=== PATIENT | male | born 1960 | race Caucasian/White ===

== ENCOUNTER 2019-02-12 17:39 | Outpatient (REF) | payer OTHER, SELFPAY ==
[2019-02-12 21:28] LABS: ALT 63 U/L (16-63); AST 50 U/L (15-37); Albumin 3.8 g/dL (3.4-5.0); Alkaline Phosphatase 111 U/L (46-116); Bilirubin, Total 0.8 mg/dL (0.2-1.0); Total Protein 7.2 g/dL (6.4-8.2)
[2019-02-12 21:53] LABS: Bilirubin, Direct 0.21 mg/dL (0.00-0.20)
== END 2019-02-12 17:59 ==
LOC: NCHCN 17:39
PROVIDERS: PCP Nurse Practitioner Family; Visit Provider Nurse Practitioner Family
DX: I10 Essential (primary) hypertension (principal); E11.65 Type 2 diabetes mellitus with hyperglycemia; B35.4 Tinea corporis
CPT/HCPCS: 80076

== ENCOUNTER 2020-08-01 18:49 | Outpatient (REF) | payer SELFPAY ==
[2020-08-01 19:42] LABS: ALT 64 U/L (16-63); AST 39 U/L (15-37); Anion Gap 13.8 mmol/L (3-11); BUN 17 mg/dL (7-18); CO2 23.2 mmol/L (21.0-32.0); Calcium 9.2 mg/dL (8.5-10.1); Chloride 100 mmol/L (98-107); Glucose 230 mg/dL (74-106); HDL Cholesterol 62 mg/dL (40-60); LDL CHOLESTEROL 113 mg/dL (<100); Potassium 4.6 mmol/L (3.5-5.1); Sodium 137 mmol/L (136-145)
[2020-08-01 19:55] LABS: Creatine Kinase 174 U/L (39-308)
[2020-08-01 20:37] LABS: Vitamin D 25 Total 18.3 ng/ml (30-100)
[2020-08-02 18:13] LABS: PSA, Screening 4.3 ng/mL (0.0-4.5)
[2020-08-04 09:58] LABS: TSH (W/Ref FT4) 2.44 uIU/mL (0.36-3.74)
== END 2020-08-01 18:50 | disposition home or self-care (01) ==
LOC: NCHCN 18:49
PROVIDERS: PCP Nurse Practitioner Family; Visit Provider Nurse Practitioner Family
DX: I10 Essential (primary) hypertension (principal); E78.5 Hyperlipidemia, unspecified; F32.9 Major depressive disorder, single episode, unspecified; Z00.00 Encounter for general adult medical examination without abnormal findings; E11.65 Type 2 diabetes mellitus with hyperglycemia; Z12.5 Encounter for screening for malignant neoplasm of prostate
CPT/HCPCS: 80048; 82306; 82550; 83721; 84153; 83718; 84443; 84450; 84460

== ENCOUNTER 2020-08-12 09:58 | Outpatient (REF) | payer SELFPAY ==
[2020-08-12 16:08] LABS: BUN 21 mg/dL (7-18); CREATININE 1.4 mg/dL (0.70-1.30); Calcium 9.5 mg/dL (8.5-10.1); Chloride 100 mmol/L (98-107); Estimated GFR 51.35 (mL/min/1.73m2); Glucose 193 mg/dL (74-106); Potassium 4.1 mmol/L (3.5-5.1); Sodium 135 mmol/L (136-145)
[2020-08-16 14:44] LABS: Testosterone, Free 11.3 ng/dL (3.67-13.9); Testosterone, Total 313 ng/dL (240-950)
== END 2020-08-12 09:59 | disposition home or self-care (01) ==
LOC: NCHCN 09:58
PROVIDERS: PCP Nurse Practitioner Family; Visit Provider Family Medicine
DX: Z00.00 Encounter for general adult medical examination without abnormal findings (principal); R19.7 Diarrhea, unspecified; F52.21 Male erectile disorder; F10.10 Alcohol abuse, uncomplicated; I10 Essential (primary) hypertension; E11.65 Type 2 diabetes mellitus with hyperglycemia
CPT/HCPCS: 80048; 84402; 84403

== ENCOUNTER 2021-03-06 16:21 | Outpatient (REF) | payer OTHER, SELFPAY ==
[2021-03-06 20:23] LABS: ALT 61 U/L (16-63); AST 43 U/L (15-37); BUN 16 mg/dL (7-18); Calcium 9.4 mg/dL (8.5-10.1); Chloride 103 mmol/L (98-107); Glucose 129 mg/dL (74-106); HDL Cholesterol 83 mg/dL (40-60); LDL CHOLESTEROL 77 mg/dL (<100); Potassium 4.3 mmol/L (3.5-5.1); Sodium 140 mmol/L (136-145)
[2021-03-06 21:18] LABS: Creatine Kinase 263 U/L (39-308)
== END 2021-03-06 16:22 | disposition home or self-care (01) ==
LOC: NCHCN 16:21
PROVIDERS: PCP Nurse Practitioner Family; Visit Provider Nurse Practitioner Family
DX: I10 Essential (primary) hypertension (principal); E11.9 Type 2 diabetes mellitus without complications; E78.5 Hyperlipidemia, unspecified
CPT/HCPCS: 80048; 82550; 83721; 83718; 84450; 84460

== ENCOUNTER 2022-04-09 15:04 | Outpatient (REF) | payer BC, SELFPAY ==
[2022-04-09 16:21] LABS: Anion Gap 7.5 mmol/L (3-11); BUN 22 mg/dL (7-18); CO2 27.5 mmol/L (21.0-32.0); CREATININE 1.2 mg/dL (0.70-1.30); Calcium 8.9 mg/dL (8.5-10.1); Chloride 104 mmol/L (98-107); Estimated GFR 67.95 (mL/min/1.73m2); Glucose 123 mg/dL (74-106); Potassium 4.6 mmol/L (3.5-5.1); Sodium 139 mmol/L (136-145)
[2022-04-09 21:25] LABS: Hemoglobin A1C 5.9 % (<5.7)
== END 2022-04-09 15:05 | disposition home or self-care (01) ==
LOC: NCHCN 15:04
PROVIDERS: PCP Nurse Practitioner Family; Visit Provider Nurse Practitioner Family
DX: I10 Essential (primary) hypertension (principal); E11.9 Type 2 diabetes mellitus without complications
CPT/HCPCS: 80048; 83036

== ENCOUNTER 2023-10-03 16:25 | Outpatient (REF) | payer BC, SELFPAY ==
[2023-10-03 18:55] LABS: ALT 44 U/L (16-63); AST 42 U/L (15-37); Albumin 3.8 g/dL (3.4-5.0); Alkaline Phosphatase 77 U/L (46-116); Anion Gap 9.5 mmol/L (3-11); BUN 21 mg/dL (7-18); CO2 23.5 mmol/L (21.0-32.0); CREATININE 1.1 mg/dL (0.70-1.30); Chloride 103 mmol/L (98-107); Creatine Kinase 216 U/L (39-308); Glucose 239 mg/dL (74-106); Potassium 4.7 mmol/L (3.5-5.1); Sodium 136 mmol/L (136-145); Total Protein 7.2 g/dL (6.4-8.2)
[2023-10-03 19:10] LABS: HDL Cholesterol 91 mg/dL (40-60); LDL CHOLESTEROL 76 mg/dL (<100)
== END 2023-10-03 16:26 | disposition home or self-care (01) ==
LOC: NCHCN 16:25
PROVIDERS: PCP Nurse Practitioner Family; Visit Provider Nurse Practitioner Family
DX: E78.5 Hyperlipidemia, unspecified (principal); I10 Essential (primary) hypertension; E11.9 Type 2 diabetes mellitus without complications
CPT/HCPCS: 80053; 82550; 83721; 83036; 83718

== ENCOUNTER 2024-09-01 11:00 | Outpatient (REF) | payer BC, SELFPAY ==
[2024-09-01 15:44] LABS: Bacteria Rare HPF (Negative); C & S Indicated? No; Crystals Negative HPF (Negative); Epithelial Cells Rare HPF (Negative); Mucus Negative (Negative); Other Cells Rare Transitional (Negative); RBC 0-2 HPF (0-2); WBC 0-2 HPF (0-5)
[2024-09-01 17:18] LABS: Hemoglobin A1C 5.9 % (<5.7)
[2024-09-01 17:22] LABS: ALT 39 U/L (16-63); AST 31 U/L (15-37); Albumin 3.7 g/dL (3.4-5.0); Alkaline Phosphatase 92 U/L (46-116); Anion Gap 11.7 mmol/L (3-11); BUN 23 mg/dL (7-18); Bilirubin, Total 0.8 mg/dL (0.2-1.0); CO2 21.3 mmol/L (21.0-32.0); CREATININE 1.7 mg/dL (0.70-1.30); Calcium 9.7 mg/dL (8.5-10.1); Calculated LDL 61 mg/dL (<100); Chloride 107 mmol/L (98-107); Cholesterol 176 mg/dL (<200); Estimated GFR 43.91 (mL/min/1.73m2); Glucose 135 mg/dL (74-106); HDL Cholesterol 101 mg/dL (>or=40); Sodium 140 mmol/L (136-145); Total Protein 7.2 g/dL (6.4-8.2); Triglyceride 73 mg/dL (<150); Vitamin D 25 Total 8 ng/mL (30-100)
== END 2024-09-01 11:01 | disposition home or self-care (01) ==
LOC: NCHCN 11:00
PROVIDERS: PCP Physician Assistant Medical; Visit Provider Physician Assistant Medical
DX: E78.5 Hyperlipidemia, unspecified (principal); E11.9 Type 2 diabetes mellitus without complications; E55.9 Vitamin D deficiency, unspecified; R31.9 Hematuria, unspecified
CPT/HCPCS: 80053; 80061; 82306; 81015; 83036

== ENCOUNTER 2024-11-30 15:50 | Outpatient (REF) | payer BC, SELFPAY ==
[2024-11-30 17:54] LABS: Hemoglobin A1C 5.7 % (<5.7)
[2024-11-30 18:17] LABS: Anion Gap 10.5 mmol/L (3-11); BUN 24 mg/dL (7-18); CO2 23.5 mmol/L (21.0-32.0); Calcium 9.8 mg/dL (8.5-10.1); Chloride 103 mmol/L (98-107); Estimated GFR 47.23 (mL/min/1.73m2); Glucose 143 mg/dL (74-106); Potassium 5.4 mmol/L (3.5-5.1); Sodium 137 mmol/L (136-145); Vitamin D 25 Total 27 ng/mL (30-100)
[2024-12-01 18:18] LABS: PSA, Screening 20.9 ng/mL (<=4.5)
== END 2024-11-30 15:51 | disposition home or self-care (01) ==
LOC: NCHCN 15:50
PROVIDERS: PCP Physician Assistant Medical; Visit Provider Physician Assistant Medical
DX: E11.9 Type 2 diabetes mellitus without complications (principal); I10 Essential (primary) hypertension; E55.9 Vitamin D deficiency, unspecified; Z12.5 Encounter for screening for malignant neoplasm of prostate
CPT/HCPCS: 80048; 82306; 84153; 83036

== ENCOUNTER 2025-03-02 10:28 | Outpatient (REF) | payer BC, SELFPAY ==
[2025-03-02 17:44] LABS: ALT 33 U/L (16-63); AST 24 U/L (15-37); Albumin 3.8 g/dL (3.4-5.0); Alkaline Phosphatase 85 U/L (46-116); Anion Gap 8.6 mmol/L (3-11); BUN 22 mg/dL (7-18); Bilirubin, Total 0.8 mg/dL (0.2-1.0); CO2 25.4 mmol/L (21.0-32.0); Calcium 9.4 mg/dL (8.5-10.1); Chloride 106 mmol/L (98-107); Estimated GFR 47.23 (mL/min/1.73m2); Glucose 141 mg/dL (74-106); Potassium 5.0 mmol/L (3.5-5.1); Sodium 140 mmol/L (136-145); Total Protein 7.1 g/dL (6.4-8.2)
[2025-03-02 17:45] LABS: HCT 39.8 % (40.0-50.0); HGB 13.2 g/dL (13.5-17.5); MCH 37.3 pg (27.0-33.0); MCHC 33.2 % (32.0-36.0); MPV 11.2 fL (8.0-11.0); Platelet Count 194 10^3/uL (130-400); RBC 3.54 10^6/uL (4.36-5.78); RDW 14.5 % (11.8-14.1); RDW-SD 61.1 fL; WBC 7.62 10^3/uL (4.4-10.8)
[2025-03-02 18:04] LABS: Hemoglobin A1C 5.6 % (<5.7)
[2025-03-02 19:06] LABS: MCV 112 fL (80-95)
== END 2025-03-02 10:29 | disposition home or self-care (01) ==
LOC: NCHCN 10:28
PROVIDERS: PCP Physician Assistant Medical; Visit Provider Physician Assistant Medical
DX: C61 Malignant neoplasm of prostate (principal); E11.9 Type 2 diabetes mellitus without complications
CPT/HCPCS: 80053; 85027; 83036

== ENCOUNTER 2025-04-22 11:18 | Outpatient (CLI) | payer BC, SELFPAY ==
[2025-04-22 11:31] LABS: HCT 44.2 % (40.0-50.0); HGB 14.5 g/dL (13.5-17.5); MCH 36.9 pg (27.0-33.0); MCHC 32.8 % (32.0-36.0); MCV 113 fL (80-95); MPV 10.2 fL (8.0-11.0); Platelet Count 247 10^3/uL (130-400); RBC 3.93 10^6/uL (4.36-5.78); RDW 11.8 % (11.8-14.1); RDW-SD 49.4 fL; WBC 10.89 10^3/uL (4.4-10.8)
[2025-04-22 12:23] LABS: ALT 27 U/L (10-49); AST 36 U/L (<34); Albumin 4.5 g/dL (3.2-5.0); Alkaline Phosphatase 80 U/L (46-116); Anion Gap 7.9 mmol/L (3-11); BUN 26 mg/dL (9-23); Bilirubin, Total 0.70 mg/dL (0.2-1.2); CO2 26.1 mmol/L (20.0-31.0); Calcium 9.7 mg/dL (8.3-10.6); Chloride 108 mmol/L (98-107); Glucose 106 mg/dL (74-106); Potassium 5.0 mmol/L (3.5-5.1); Sodium 142 mmol/L (136-145); Total Protein 7.8 g/dL (5.7-8.2)
== END 2025-04-22 11:19 | disposition home or self-care (01) ==
LOC: LBO 11:25
PROVIDERS: PCP Physician Assistant Medical; Visit Provider Radiology Radiation Oncology
DX: C61 Malignant neoplasm of prostate (principal)
CPT/HCPCS: 36415; 80053; 84153; 84403; 85027